=== PATIENT | male | born 1990 | race Caucasian/White ===

== ENCOUNTER 2018-10-16 13:38 | Emergency (ER) | payer SELFPAY ==
--- NOTE | 2018-10-16 14:39 | ER Document Report ---
ED Medical Screen (RME) - General Chief Complaint: Chest Pressure Stated Complaint: CHEST PAIN Time Seen by Provider: 10/16/18 14:34 Mode of Arrival: Ambulatory Information source: Patient Notes: 28-year-old male presents to ED for complaint of chest pain shortness of breath off and on for the last 2 weeks. He states he has been taken Zantac and Bronkaid thinking that would help. He states he ordered cocaine 2 weeks ago and had slight chest pain. He states it would come and go then 3 days ago it became much worse. He states he has had it worse sinus congestion for the last for 5 days. Patient states he smokes marijuana every day for the last 15 years and he smokes an occasional cigarette. He states he is very concerned because this pain is continuing and usually when he smokes marijuana or uses cocaine he does not get this pain did not last this long. Lungs are clear to auscultation at this time. Patient is breathing with no distress. Patient is in no acute distress at this time I have greeted and performed a rapid initial assessment of this patient. A comprehensive ED assessment and evaluation of the patient, analysis of test results and completion of medical decision making process will be conducted by an additional ED providers. TRAVEL OUTSIDE OF THE [place] IN LAST 30 DAYS: No - Related Data Allergies/Adverse Reactions: No Known Allergies Allergy (Unverified 10/16/18 13:40) Physical Exam - Vital signs Vitals: Temp Pulse Resp BP Pulse Ox 98.3 F 74 14 167/97 H 98 10/16/18 13:50 10/16/18 13:50 10/16/18 13:50 10/16/18 13:50 10/16/18 13:50 Course - Vital Signs Vital signs: Temp Pulse Resp BP Pulse Ox 98.3 F 74 14 167/97 H 98 10/16/18 13:50 10/16/18 13:50 10/16/18 13:50 10/16/18 13:50 10/16/18 13:50
--- NOTE | 2018-10-16 15:24 | RADIOLOGY REPORT (SQ) ---
EXAM DESCRIPTION: CHEST 2 VIEWS COMPLETED DATE/TIME: 10/16/2018 3:16 pm REASON FOR STUDY: Left-sided chest pain shortness of breath COMPARISON: None. EXAM PARAMETERS: NUMBER OF VIEWS: two views TECHNIQUE: Digital Frontal and Lateral radiographic views of the chest acquired. RADIATION DOSE: NA LIMITATIONS: none FINDINGS: LUNGS AND PLEURA: No opacities, masses or pneumothorax. No pleural effusion. MEDIASTINUM AND HILAR STRUCTURES: No masses or contour abnormalities. HEART AND VASCULAR STRUCTURES: Heart normal size. No evidence for failure. BONES: No acute findings. HARDWARE: None in the chest. OTHER: No other significant finding. IMPRESSION: NO ACUTE RADIOGRAPHIC FINDING IN THE CHEST. TECHNICAL DOCUMENTATION: JOB ID: [id number] [employer]- All Rights Reserved Reading location - IP/workstation name: [email or web address]
[2018-10-16 15:35] LABS: ABSOLUTE BASOPHILS # (AUTO) 0.1 10^3/uL (0.0-0.2); ABSOLUTE EOSINOPHILS # (AUTO) 0.3 10^3/uL (0.0-0.6); ABSOLUTE LYMPHOCYTES (AUTO) 2.1 10^3/uL (0.5-4.7); ABSOLUTE MONOCYTES (AUTO) 0.6 10^3/uL (0.1-1.4); ABSOLUTE NEUT (AUTO) 6.5 10^3/uL (1.7-8.2); BASOPHILS % (AUTO) 0.6 % (0-2); EOSINOPHILS % (AUTO) 2.8 % (0-6); HEMATOCRIT 48.1 % (37.9-51.0); HEMOGLOBIN 17.3 g/dL (13.5-17.0); LYMPHOCYTES % (AUTO) 21.9 % (13-45); MEAN CORPUSCULAR HEMOGLOBIN 30.7 pg (27.0-33.4); MEAN CORPUSCULAR VOLUME 85 fl (80-97); MONOCYTES % (AUTO) 6.4 % (3-13); PLATELET COUNT 174 10^3/uL (150-450); RED BLOOD COUNT 5.64 10^6/uL (4.35-5.55); RED CELL DISTRIBUTION WIDTH 12.4 % (11.5-14.0); SEGMENTED NEUTROPHILS % (AUTO) 68.3 % (42-78); TOTAL CELLS COUNTED % (AUTO) 100 %; WHITE BLOOD COUNT 9.5 10^3/uL (4.0-10.5)
[2018-10-16 15:48] LABS: AMORPHOUS SEDIMENT,URINE TRACE /HPF; APPEARANCE,URINE CLOUDY; BILIRUBIN,URINE NEGATIVE (NEGATIVE); COLOR,URINE YELLOW; GLUCOSE, URINE NEGATIVE (NEGATIVE); KETONES,URINE NEGATIVE (NEGATIVE); LEUKOCYTE ESTERASE,URINE NEGATIVE (NEGATIVE); NITRITE,URINE NEGATIVE (NEGATIVE); PROTEIN,URINE NEGATIVE (NEGATIVE); URINE SPECIFIC GRAVITY 1.019; UROBILINOGEN,URINE NEGATIVE mg/dL (<2.0)
[2018-10-16 15:53] LABS: URINE AMPHETAMINES SCREEN NEGATIVE; URINE BARBITURATES SCREEN NEGATIVE; URINE BENZODIAZEPINES SCREEN NEGATIVE; URINE COCAINE SCREEN NEGATIVE; URINE MARIJUANA (THC) SCREEN UNCONFIRMED POSITIVE; URINE METHADONE SCREEN NEGATIVE; URINE PHENCYCLIDINE SCREEN NEGATIVE
[2018-10-16 15:55] LABS: ALANINE AMINOTRANSFERASE 17 U/L (21-72); ALBUMIN 4.7 g/dL (3.5-5.0); ALKALINE PHOSPHATASE 68 U/L (38-126); ANION GAP 7 (5-19); ASPARTATE AMINO TRANSFERASE 25 U/L (17-59); BILIRUBIN,DIRECT 0.3 mg/dL (0.0-0.4); BILIRUBIN,TOTAL 1.5 mg/dL (0.2-1.3); BLOOD UREA NITROGEN 20 mg/dL (7-20); CALCIUM 10.1 mg/dL (8.4-10.2); CARBON DIOXIDE 29 mmol/L (22-30); CHLORIDE 106 mmol/L (98-107); GLUCOSE 88 mg/dL (75-110); POTASSIUM 4.5 mmol/L (3.6-5.0); SODIUM 142.4 mmol/L (137-145); TOTAL PROTEIN 7.3 g/dL (6.3-8.2)
[2018-10-16 19:07] LABS: CREATINE KINASE MB 1.13 ng/mL (<4.55)
[2018-10-16 19:12] LABS: TROPONIN I < 0.012 ng/mL
[2018-10-16] MEDS ORDERED: LIDOCAINE 5% (700 MG) TRANSDERMAL ADH..PATCH TP ONE (19:48)
[2018-10-16] MEDS ORDERED: KETOROLAC TROMETHAMINE 60 MG/2 ML SDV IM ONE (19:48)
--- NOTE | 2018-10-16 19:52 | ER Document Report ---
ED General - General Chief Complaint: Chest Pressure Stated Complaint: CHEST PAIN Time Seen by Provider: 10/16/18 14:34 Mode of Arrival: Ambulatory Notes: Patient is a 28-year-old male without chronic medical problems, intermittently inhaled cocaine, smokes marijuana on a daily basis, presents complaining of 2 weeks of intermittent left-sided lower chest discomfort. Patient describes as a cramping, aching, intermittent discomfort. Regards it is being mild in nature. Nothing is otherwise new or different regarding his symptoms today other than that he tried to establish a primary care doctor and was told to come to the emergency department if he was having chest discomfort. He states that elevating his pectoral muscle seems to help the pain. Nothing seems to worsen the pain other than potentially moving or coughing. Denies any associated shortness of breath currently states he has intimately felt somewhat shortness of breath when he felt like he had a sinus congestion episode last week but denies any shortness of breath in the last several days. Denies any component of pleuritic pain, hematemesis or hemoptysis. No history of DVT or pulmonary embolus. No use of estrogen has not seen his primary doctor regarding today's concerns. Has a history of chest pain episodes in the past after use of cocaine but states not have felt quite like this. TRAVEL OUTSIDE OF THE [place] IN LAST 30 DAYS: No - Related Data Allergies/Adverse Reactions: No Known Allergies Allergy (Unverified 10/16/18 13:40) Past Medical History - General Information source: Patient - Social History Smoking Status: Current Some Day Smoker Frequency of alcohol use: Occasional Drug Abuse: Cocaine, Marijuana Lives with: Alone Family History: Reviewed & Not Pertinent Review of Systems - Review of Systems Notes: Constitutional: Negative for fever. HENT: Negative for sore throat. Eyes: Negative for visual changes. Cardiovascular: Positive for chest pain. Respiratory: Negative for shortness of breath. Gastrointestinal: Negative for abdominal pain, vomiting or diarrhea. Genitourinary: Negative for dysuria. Musculoskeletal: Negative for back pain. Skin: Negative for rash. Neurological: Negative for headaches, weakness or numbness. 10 point ROS negative except as marked above and in HPI. Physical Exam - Vital signs Vitals: Temp Pulse Resp BP Pulse Ox 98.3 F 74 14 167/97 H 98 10/16/18 13:50 10/16/18 13:50 10/16/18 13:50 10/16/18 13:50 10/16/18 13:50 Interpretation: Hypertensive Notes: PHYSICAL EXAMINATION: GENERAL: Well-appearing, well-nourished and in no acute distress. HEAD: Atraumatic, normocephalic. EYES: Pupils equal round and reactive to light, extraocular movements intact, sclera anicteric, conjunctiva are normal. ENT: nares patent, oropharynx clear without exudates. Moist mucous membranes. NECK: Normal range of motion, supple without lymphadenopathy LUNGS: Breath sounds clear to auscultation bilaterally and equal. No wheezes rales or rhonchi. HEART: Regular rate and rhythm without murmurs Chest wall: No deformity, mild reproducible pain on palpation of the left lower rib spaces ABDOMEN: Soft, nontender, normoactive bowel sounds. No guarding, no rebound. No masses appreciated. EXTREMITIES: Normal range of motion, no pitting or edema. No cyanosis. NEUROLOGICAL: No focal neurological deficits. Moves all extremities spontaneously and on command. PSYCH: Normal mood, normal affect. SKIN: Warm, Dry, normal turgor, no rashes or lesions noted. Course - Re-evaluation Re-evalutation: 10/16/18 19:50 Presentation of chest pain in an otherwise well appearing patient. Low clinical suspicion for ACS given clinical history, exam, EKG without ST elevations or depressions, and negative initial troponin. HEART score less than or equal to 3. I do not believe serial troponins are indicated given the duration of the patient's symptoms as well as mild low clinical suspicion for cardiac etiology of his complaint. PE also seems unlikely given clinical history, absence of tachycardia or dyspnea. Patient is PERC criteria negative. CXR without evidence of pneumothorax or pneumonia. No widened mediastinum. Aortic dissection also s eems unlikely given history, symmetric pulses, CXR, and vitals. At this time will discharge with return precautions and follow-up recommendations. Verbal discharge instructions given a the bedside and opportunity for questions given. Medication warnings reviewed. Patient is in agreement with this plan and has verbalized understanding of return precautions and the need for primary care follow-up in the next 24-72 hours. - Vital Signs Vital signs: Temp Pulse Resp BP Pulse Ox 98.3 F 74 14 167/97 H 98 10/16/18 13:50 10/16/18 13:50 10/16/18 13:50 10/16/18 13:50 10/16/18 13:50 - Laboratory Result Diagrams: 10/16/18 15:20 10/16/18 15:20 Laboratory results interpreted by me: 10/16/18 10/16/18 15:20 15:20 RBC 5.64 H Hgb 17.3 H Total Bilirubin 1.5 H ALT 17 L - Diagnostic Test Radiology reviewed: Image reviewed, Reports reviewed Radiology results interpreted by me: 10/16/18 19:51 Chest x-ray: No acute infiltrate or pneumothorax - EKG Interpretation by Me Additional EKG results interpreted by me: 10/16/18 19:51 Sinus rhythm, rate 72. No ST elevations or motions. QTC 408. Discharge - Discharge Clinical Impression: Intermittent chest pain Condition: Good Disposition: HOME, SELF-CARE Additional Instructions: You were seen today for chest pain. The exact cause of your pain is unclear. However, based on your cardiac enzyme testing, chest x-ray, and EKG it does not appear that it is from an immediately life-threatening cause at this time. Although your testing here is normal is critical that you follow-up with your primary care physician for continued evaluation of this chest pain. I strongly encourage you to discontinue cocaine use. Please return to emergency department immediately if you have worsening of your chest pain, shortness of breath, vomiting, become unable to exert yourself due to pain or difficulty breathing, you pass out, or have any pain that radiates into your arms, jaw, or back. Please also return if you have any additional symptoms that are concerning to you.
--- NOTE | 2018-10-16 20:05 | EKG REPORT ---
SEVERITY:- OTHERWISE NORMAL ECG - SINUS RHYTHM LATERAL Q WAVES, PROBABLY NORMAL VARIATION : Confirmed by: Zakia Wan MD 16-Oct-2018 20:04:17
[2018-10-16 20:32] VITALS: BP 149/96
== END 2018-10-16 20:33 | disposition home or self-care (01) ==
LOC: ER 13:38
DX: R07.9 Chest pain, unspecified (principal); F17.200 Nicotine dependence, unspecified, uncomplicated
CPT/HCPCS: 36415; 71046; 80053; 80307; 81001; 82553; 84484; 85025; 93005; 93010; 99285

== ENCOUNTER 2019-03-11 09:37 | Emergency (ER) | payer OTHER ==
--- NOTE | 2019-03-11 10:52 | ER Document Report ---
HPI - HPI Patient complains to provider of: herpes flare Time Seen by Provider: 03/11/19 10:40 Onset: Other Onset/Duration: Sudden Pain Level: Denies Context: This 28-year-old male presents emergency department with complaints of herpes flare. Reports he has had herpes for the past several years. Reports he contracted it via his ex girlfriend. He denies penile discharge. He denies pain with void. He denies abdominal and testicular pain. Denies fever vomiting diarrhea. Reports he has one ulcer on the side of his penis. Patient reports he has not been sexually active for the last couple months. He does acknowledge that he uses condoms when he is sexually active. Associated Symptoms: None Exacerbated by: Denies Relieved by: Denies Similar symptoms previously: Yes Recently seen / treated by doctor: No - CONSTITUTIONAL Constitutional: DENIES: Fever, Chills Past Medical History - General Information source: Patient - Social History Smoking Status: Current Some Day Smoker Cigarette use (# per day): Yes Frequency of alcohol use: None Drug Abuse: Marijuana Family History: Reviewed & Not Pertinent Patient has suicidal ideation: No Patient has homicidal ideation: No Renal/ Medical History: Reports: Other - herpes. Denies: Hx Peritoneal Dialysis Surgical Hx: Negative Vertical Provider Document - CONSTITUTIONAL Agree With Documented VS: Yes Exam Limitations: No Limitations General Appearance: WD/WN, No Apparent Distress - INFECTION CONTROL TRAVEL OUTSIDE OF THE [place] IN LAST 30 DAYS: No - HEENT HEENT: Atraumatic, Normocephalic - NECK Neck: Normal Inspection, Supple. negative: Lymphadenopathy-Left, Lymphadenopathy-Right - RESPIRATORY Respiratory: Breath Sounds Normal, No Respiratory Distress - CARDIOVASCULAR Cardiovascular: Regular Rate, Regular Rhythm - GI/ABDOMEN Gastrointestinal: Abdomen Soft, Abdomen Non-Tender - REPRODUCTIVE Notes: two small sores noted to 1100/1200 area, no ulceration noted - MUSCULOSKELETAL/EXTREMETIES Musculoskeletal/Extremeties: MAEW, FROM, Non-Tender - NEURO Level of Consciousness: Awake, Alert, Appropriate Motor/Sensory: No Motor Deficit - DERM Integumentary: Warm, Dry Course - Re-evaluation Re-evalutation: 03/11/19 10:52 This 28-year-old male presents emergency department with complaints of herpes flare. Reports he has a history of herpes obtained from his girlfriend several years ago. He denies other symptoms such as pain with void fever vomiting diarrhea. Denies penile discharge denies testicular pain. Reports he has been sexually active in a couple months but reports he does use condoms when he is sexually active. Patient would like information on herpes. Patient does not think he has any other STD at this time. He reports that he would rather not be treated for gonorrhea chlamydia and he will come back for treatment should he need it. 03/11/19 20:34 Chlamydia gonorrhea negative. - Vital Signs Vital signs: Temp Pulse Resp BP Pulse Ox 97.7 F 58 L 16 145/89 H 99 03/11/19 09:40 03/11/19 09:40 03/11/19 09:40 03/11/19 09:40 03/11/19 09:40 Discharge - Discharge Clinical Impression: STD exposure Herpes genitalia Qualifiers: Herpes simplex infection site: penis Qualified Code(s): A60.01 - Herpesviral infection of penis Condition: Stable Disposition: HOME, SELF-CARE Instructions: Acyclovir ([facility]), Genital Herpes ([facility]), [facility] Department Additional Instructions: *You have been evaluated for STD exposure, herpes *Take medication as prescribed *Follow up with the health department for recheck within one week for recheck *Avoid sexual intercourse until follow up *Always wear condoms *Return to ED for worsening condition, changes, needs Monitor your blood pressure. Your blood pressure was elevated today. This may be because you were anxious, in pain or because you need medication. It is important to follow up with your primary care provider for full evaluation. Prescriptions: Acyclovir [Zovirax 800 mg Tablet] 800 mg PO TID #6 tablet Forms: Elevated Blood Pressure
[2019-03-11 11:22] VITALS: BP 160/85
[2019-03-11 12:51] LABS: CHLAM PCR NOT DETECTED (NOT DETECT)
== END 2019-03-11 11:21 | disposition home or self-care (01) ==
LOC: ER 09:37
DX: A60.01 Herpesviral infection of penis (principal); Z20.2 Contact with and (suspected) exposure to infections with a predominantly sexual mode of transmission; F17.210 Nicotine dependence, cigarettes, uncomplicated
CPT/HCPCS: 87250; 87491; 87591; 99283